=== PATIENT | male | born 1990 ===

== ENCOUNTER 2021-05-30 22:29 | Emergency (ER) | payer SELFPAY ==
[~2021-05-30] VITALS: Ht 180.3 cm; Wt 101.0 kg
[2021-05-30 22:36] VITALS: TEMP 98
[2021-05-30 23:19] LABS: COLLECTION METHOD CLEAN CATCH
[2021-05-30 23:24] LABS: PH 5 (5-8); SQUAMOUS EPITHELIAL None Seen /hpf (0-10); URINE APPEARANCE Clear (CLEAR/HAZY); URINE BACTERIA None Seen /hpf (NONE SEEN); URINE BILIRUBIN Negative (NEGATIVE); URINE BLOOD Negative (NEGATIVE); URINE COLOR Yellow (YELLOW); URINE GLUCOSE Negative (NEGATIVE); URINE KETONE Negative (NEGATIVE); URINE LEUKOCYTE ESTERASE Negative (NEGATIVE); URINE NITRATE Negative (NEGATIVE); URINE PROTEIN(semi-quant) Negative (NEGATIVE); URINE RBC 0-2 /hpf (0-2); URINE UROBILINOGEN Negative (NEGATIVE)
[2021-05-31 00:18] VITALS: BP 138/78; PULSE 78
== END 2021-05-31 00:18 | disposition home or self-care (01) ==
LOC: COL.ER 22:29
PROVIDERS: Nurse Practitioner
DX: R30.0 Dysuria (principal)
CPT/HCPCS: J0696